=== PATIENT | male | born 1995 | race African-American/Black ===

== ENCOUNTER 2017-11-18 20:58 | Emergency (ER) | payer BC, SELFPAY ==
[2017-11-18] MEDS ORDERED: PANTOPRAZOLE 40 MG INJ ONE (22:00)
[2017-11-18] MEDS ORDERED: ONDANSETRON 4 MG/2 ML VIAL ONE (22:00)
[2017-11-18 22:09] LABS: Absolute Lymphocytes (CBC) 0.3 K/uL (0.7-4.9); Absolute Monocytes 0.4 K/uL (0.1-1.3); Absolute Neutrophil 8.4 K/uL (1.8-8.0); Basophils % 0.3 % (0-1.3); Eosinophils % 0.2 % (0-4.4); Hematocrit 48.6 % (39.6-49.0); Lymphocytes % 3.2 % (15.3-44.8); MCH 29.7 pg (27.0-35.0); MCV 86.2 fL (80-100); MPV 9.4 fL (7.6-11.3); Monocytes % 4.7 % (3.3-12.3); RBC Red Blood Cell Count 5.64 M/uL (4.33-5.43)
[2017-11-18 22:20] LABS: ALT/SGPT 28 U/L (12-78); AST/SGOT 24 U/L (15-37); Albumin 4.4 g/dL (3.4-5.0); Alkaline Phosphatase 82 U/L (45-117); Amylase Level 52 U/L (25-115); BUN Blood Urea Nitrogen 13 mg/dL (7-18); Bicarbonate 28 mmol/L (21-32); Bilirubin Direct 0.2 mg/dL (0-0.2); Bilirubin Total 0.6 mg/dL (0.2-1.0); Glucose Level 98 mg/dL (74-106); Lipase 90 U/L (73-393); Potassium 3.9 mmol/L (3.5-5.1); Protein, Total 8.5 g/dL (6.4-8.2); Sodium Level 140 mmol/L (136-145)
--- NOTE | 2017-11-18 22:21 | RAD REPORT ---
EXAM DESCRIPTION: Wendy Single View11/18/2017 9:48 pm CLINICAL HISTORY: Chest pain COMPARISON: none FINDINGS: The lungs appear clear of acute infiltrate. The heart is normal size IMPRESSION: No acute abnormalities displayed
[2017-11-18 22:34] LABS: Blood Morphology Comment NOT SEEN (NOT SEEN); Platelet Estimate ADEQ
[2017-11-18] MEDS ORDERED: NA CHLORIDE 0.9% 1,000 ML ONE (22:52)
[2017-11-18 22:58] LABS: Urine Blood NEGATIVE (NEG); Urine Glucose NEGATIVE (NEG); Urine Specific Gravity >1.030 (1.005-1.030)
[2017-11-18 22:59] LABS: Urine Protein 1+ (NEG)
--- NOTE | 2017-11-18 23:24 | ER ---
Nurse's Notes [facility] Department Name: Ashley Zazueta Age: 22 yrs Sex: Male : 1995 Arrival Date: 11/18/2017 Time: 21:02 Bed 13 Private MD: Diagnosis: Hematemesis Presentation: 11/18 21:13 Presenting complaint: Patient states: he started vomiting this morning then was sent bb home from work he then vomited until his stomach was empty and he was dry heaving then he vomited some blood. Transition of care: patient was not received from another setting of care. Onset of symptoms was November 18, 2017. Risk Assessment: Do you want to hurt yourself or someone else? Patient reports no desire to harm self or others. Initial Sepsis Screen: Does the patient meet any 2 criteria? No. Patient's initial sepsis screen is negative. Does the patient have a suspected source of infection? No. Patient's initial sepsis screen is negative. Care prior to arrival: None. 21:13 Method Of Arrival: Ambulatory bb 21:13 Acuity: CYNDEE 3 bb Historical: - Allergies: 21:14 No Known Allergies; bb - Home Meds: 21:14 None [Active]; bb - PMHx: 21:14 None; bb - PSHx: 21:14 None; bb - Immunization history:: Adult Immunizations not up to date. - Social history:: Smoking status: Patient/guardian denies using tobacco, Patient/guardian denies using alcohol, street drugs. - Ebola Screening: : No symptoms or risks identified at this time. Screenin:20 Abuse screen: Denies threats or abuse. Nutritional screening: No deficits noted. jd3 Tuberculosis screening: No symptoms or risk factors identified. Fall Risk Ambulatory Aid- None/Bed Rest/Nurse Assist (0 pts). Gait- Normal/Bed Rest/Wheelchair (0 pts) Mental Status- Oriented to own ability (0 pts). Total Pink Fall Scale indicates No Risk (0-24 pts). Assessment: 21:16 General: Appears in no apparent distress. uncomfortable, Behavior is calm, cooperative, jd3 appropriate for age. Pain: Complains of pain in epigastric area Pain currently is 1 out of 10 on a pain scale. Quality of pain is described as aching. Neuro: Level of Consciousness is awake, alert, obeys commands, Oriented to person, place, time, situation, Appropriate for age. Cardiovascular: Heart tones S1 S2 present Capillary refill < 3 seconds Patient's skin is warm and dry. Respiratory: Airway is patent Respiratory effort is even, unlabored, Respiratory pattern is regular, symmetrical, Breath sounds are clear bilaterally. GI: Abdomen is flat, non-distended, Bowel sounds present X 4 quads. Abd is soft and non tender X 4 quads. Reports nausea, normal bowel habits, vomiting blood Patient currently denies bloody stool, constipation, cramping, diarrhea. : No signs and/or symptoms were reported regarding the genitourinary system. EENT: No signs and/or symptoms were reported regarding the EENT system. Derm: No signs and/or symptoms reported regarding the dermatologic system. Musculoskeletal: Circulation, motion, and sensation intact. Range of motion: intact in all extremities. 22:38 Reassessment: Patient appears in no apparent distress at this time. Patient and/or jd3 family updated on plan of care and expected duration. Pain level reassessed. Patient is alert, oriented x 3, equal unlabored respirations, skin warm/dry/pink. 23:37 Reassessment: Patient appears in no apparent distress at this time. Patient and/or jd3 family updated on plan of care and expected duration. Pain level reassessed. Patient is alert, oriented x 3, equal unlabored respirations, skin warm/dry/pink. pt reported understanding of discharge instructions, even and steady gait upon discharge. Vital Signs: 21:14 BP 131 / 85; Pulse 112; Resp 18 S; Temp 99.9(O); Pulse Ox 100% on R/A; Weight 81.65 kg bb (R); Height 5 ft. 6 in. (167.64 cm) (R); Pain 2/10; 22:38 BP 124 / 81; Pulse 101; Resp 17 S; Pulse Ox 99% on R/A; Pain 1/10; jd3 23:37 BP 114 / 56; Pulse 98; Resp 16 S; Pulse Ox 99% on R/A; jd3 21:14 Body Mass Index 29.05 (81.65 kg, 167.64 cm) bb ED Course: 21:02 Patient arrived in ED. es 21:14 Triage completed. bb 21:14 Arm band placed on Patient placed in an exam room, on a stretcher, on pulse oximetry. bb Family accompanied patient. 21:16 Jignesh Hardy, RN is Primary Nurse. jd3 21:17 Jose Luis Kay PA is PHCP. cp 21:17 Santi Cisse MD is Attending Physician. cp 21:21 Patient has correct armband on for positive identification. Bed in low position. Call jd3 light in reach. Side rails up X 1. Adult w/ patient. 21:45 Missed attempt(s): 20 gauge in right antecubital area. Bleeding controlled, band aid jd3 applied, catheter tip intact. 21:48 XRAY Chest (1 view) In Process Unspecified. EDMS 21:50 Inserted saline lock: 20 gauge in left antecubital area, using aseptic technique. Blood jd3 collected. 23:22 Trent Rolon MD is Referral Physician. cp 23:36 No provider procedures requiring assistance completed. IV discontinued, intact, jd3 bleeding controlled, No redness/swelling at site. Pressure dressing applied. Administered Medications: 22:04 Drug: Zofran 4 mg Route: IVP; Site: left antecubital; jd3 22:47 Follow up: Response: No adverse reaction jd3 22:05 Drug: ProTONIX 40 mg Route: IVP; Site: left antecubital; jd3 22:47 Follow up: Response: No adverse reaction jd3 22:55 Drug: NS 0.9% 1000 ml Route: IV; Rate: 1 bolus; Site: left antecubital; jd3 23:37 Follow up: Response: No adverse reaction; IV Status: Completed infusion; IV Intake: jd3 1000ml Intake: 23:37 IV: 1000ml; Total: 1000ml. jd3 Outcome: 23:23 Discharge ordered by MD. cp 23:36 Discharged to home ambulatory, with family. jd3 23:36 Condition: stable 23:36 Discharge instructions given to patient, family, Instructed on discharge instructions, follow up and referral plans. medication usage, Demonstrated understanding of instructions, follow-up care, medications, Prescriptions given X 2. 23:38 Patient left the ED. jd3 Signatures: Dispatcher [employer] EDLashay Frey Brenda, RN RN bb Page, Corey, PA PA cp Jignesh Hardy RN RN jd3
--- NOTE | 2017-11-18 23:24 | EDPHYS ---
Physician Documentation [facility] Name: Ashley Zazueta Age: 22 yrs Sex: Male : 1995 Arrival Date: 11/18/2017 Time: 21:02 Bed 13 Private MD: ED Physician Santi Cisse HPI: 11/18 21:45 This 22 yrs old Black Male presents to ER via Ambulatory with complaints of Fever, cp VOMITING BLOOD. 21:46 The patient presents to the emergency department with vomiting, that is intermittent, cp described as bright red blood. Onset: The symptoms/episode began/occurred this morning. Possible causes: unknown. Associated signs and symptoms: Pertinent positives: abdominal pain, fever, Pertinent negatives: constipation, diarrhea. Severity of symptoms: in the emergency department the symptoms have improved mildly. Historical: - Allergies: 21:14 No Known Allergies; bb - Home Meds: 21:14 None [Active]; bb - PMHx: 21:14 None; bb - PSHx: 21:14 None; bb - Immunization history:: Adult Immunizations not up to date. - Social history:: Smoking status: Patient/guardian denies using tobacco, Patient/guardian denies using alcohol, street drugs. - Ebola Screening: : No symptoms or risks identified at this time. ROS: 21:47 Eyes: Negative for injury, pain, redness, and discharge. cp 21:47 Constitutional: Negative for body aches, chills, fever, poor PO intake. 21:47 ENT: Negative for drainage from ear(s), ear pain, sore throat, difficulty swallowing, difficulty handling secretions. 21:47 Cardiovascular: Negative for chest pain, edema, palpitations. 21:47 Respiratory: Negative for cough, shortness of breath, wheezing. 21:47 Abdomen/GI: Positive for abdominal pain, vomiting, hematemesis, of the epigastric area, Negative for diarrhea, constipation, black/tarry stool, rectal bleeding. 21:47 Back: Positive for pain at rest. 21:47 Skin: Negative for cellulitis, rash. 21:47 Neuro: Negative for altered mental status, headache, loss of consciousness, syncope, near syncope, weakness. 21:47 All other systems are negative. Exam: 21:55 Constitutional: The patient appears in no acute distress, alert, awake, comfortable, cp non-toxic, well developed, well nourished. 21:55 Head/Face: Normocephalic, atraumatic. cp 21:55 Eyes: Periorbital structures: appear normal, Conjunctiva: normal, no exudate, no injection, Sclera: no appreciated abnormality, Lids and lashes: appear normal, bilaterally. 21:55 ENT: External ear(s): are unremarkable, Nose: is normal, Mouth: Lips: moist, Oral mucosa: moist, Posterior pharynx: is normal, airway is patent, no erythema, no exudate. 21:55 Neck: ROM/movement: is normal, is supple, without pain, no range of motions limitations, no meningismus, no nuchal rigidity. 21:55 Chest/axilla: Inspection: normal, Palpation: is normal, no crepitus, no tenderness. 21:55 Cardiovascular: Rate: tachycardic, Rhythm: regular. 21:55 Respiratory: the patient does not display signs of respiratory distress, Respirations: normal, no use of accessory muscles, no retractions, no splinting, no tachypnea, labored breathing, is not present, Breath sounds: are clear throughout, no decreased breath sounds, no stridor, no wheezing. 21:55 Abdomen/GI: Inspection: abdomen appears normal, Bowel sounds: active, all quadrants, Palpation: soft, in all quadrants, mild abdominal tenderness, in the epigastric area, rebound tenderness, is not appreciated, voluntary guarding, is not appreciated, involuntary guarding, is not appreciated. 21:55 Back: pain, is absent, ROM is normal. 21:55 Skin: cellulitis, is not appreciated, no rash present. 21:55 Neuro: Orientation: to person, place \T\ time. Mentation: lucid, able to follow commands, Cerebellar function: is grossly normal, Motor: moves all fours, strength is normal, Sensation: no obvious gross deficits, Gait: is steady. Vital Signs: 21:14 BP 131 / 85; Pulse 112; Resp 18 S; Temp 99.9(O); Pulse Ox 100% on R/A; Weight 81.65 kg bb (R); Height 5 ft. 6 in. (167.64 cm) (R); Pain 2/10; 22:38 BP 124 / 81; Pulse 101; Resp 17 S; Pulse Ox 99% on R/A; Pain 1/10; jd3 23:37 BP 114 / 56; Pulse 98; Resp 16 S; Pulse Ox 99% on R/A; jd3 21:14 Body Mass Index 29.05 (81.65 kg, 167.64 cm) bb MDM: 21:18 Patient medically screened. cp 22:00 Differential diagnosis: gastritis, pancreatitis, viral gastroenteritis, cp gastroenteritis, Giselle Shad tear, gastric ulcer. 23:20 Data reviewed: vital signs, nurses notes, lab test result(s), radiologic studies, plain cp films. 23:20 Test interpretation: by ED physician or midlevel provider: plain radiologic studies. cp Counseling: I had a detailed discussion with the patient and/or guardian regarding: the historical points, exam findings, and any diagnostic results supporting the discharge/admit diagnosis, lab results, radiology results, to return to the emergency department if symptoms worsen or persist or if there are any questions or concerns that arise at home. 23:20 ED course: VSS. No vomiting observed in ED. Patient observed tolerating po fluids. Will cp discharge to home for continued monitoring. 11/18 21:32 Order name: Amylase, Serum; Complete Time: 22:22 11/18 21:32 Order name: Basic Metabolic Panel; Complete Time: 22:22 11/18 22:41 Interpretation: Reviewed. 11/18 21:32 Order name: CBC with Diff; Complete Time: 22:41 11/18 22:41 Interpretation: Normal except: RBC 5.64; ERIN% 91.6; LYM% 3.2; NEUT A 8.4; LYMA 0.3. 11/18 21:32 Order name: Creatinine for Radiology; Complete Time: 22:22 11/18 21:32 Order name: Hepatic Function; Complete Time: 22:22 11/18 22:23 Interpretation: Normal except: TP 8.5; GLOB 4.1. 11/18 21:32 Order name: Lipase; Complete Time: 22:22 11/18 21:32 Order name: XRAY Chest (1 view); Complete Time: 22:22 11/18 22:27 Order name: Manual Differential; Complete Time: 22:41 EDMS 11/18 22:41 Interpretation: Normal except: SEGS 92; LYM 3. 11/18 22:48 Order name: Urine Dipstick--Ancillary (enter results) ms 11/18 22:48 Order name: Urine Dipstick-Ancillary; Complete Time: 23:18 EDMS 11/18 23:18 Interpretation: Normal except: USPGR >1.030; UKET 3+; UPROT 1+. cp 11/18 21:32 Order name: IV Saline Lock; Complete Time: 21:54 cp 11/18 21:32 Order name: Labs collected and sent; Complete Time: 21:54 cp 11/18 21:32 Order name: Urine Dipstick-Ancillary (obtain specimen); Complete Time: 22:48 cp 11/18 22:42 Order name: PO challenge; Complete Time: 22:55 cp Administered Medications: 22:04 Drug: Zofran 4 mg Route: IVP; Site: left antecubital; jd3 22:47 Follow up: Response: No adverse reaction jd3 22:05 Drug: ProTONIX 40 mg Route: IVP; Site: left antecubital; jd3 22:47 Follow up: Response: No adverse reaction jd3 22:55 Drug: NS 0.9% 1000 ml Route: IV; Rate: 1 bolus; Site: left antecubital; jd3 23:37 Follow up: Response: No adverse reaction; IV Status: Completed infusion; IV Intake: jd3 1000ml Disposition: 11/19 06:23 Co-signature as Attending Physician, Santi Cisse MD. Disposition: 11/18/17 23:23 Discharged to Home. Impression: Hematemesis. - Condition is Stable. - Discharge Instructions: Hematemesis, Giselle-Josue Syndrome. - Prescriptions for Protonix 40 mg Oral Tablet - take 1 tablet by ORAL route once daily; 30 tablet. Zofran 4 mg Oral Tablet - take 1 tablet by ORAL route every 12 hours As needed; 20 tablet. - Medication Reconciliation Form, Thank You Letter, Antibiotic Education, Prescription Opioid Use, Work release form, Family Work Release form. - Follow up: Trent Rolon MD; When: 2 - 3 days; Reason: Recheck today's complaints. - Problem is new. - Symptoms have improved. Signatures: Dispatcher [employer] EDAnila Gonzalez RN RN bb Page, Corey, PA PA cp Starr, Gregory, MD MD Hardy, Jignesh, RN RN jd3 Corrections: (The following items were deleted from the chart) 11/18 23:38 23:23 11/18/2017 23:23 Discharged to Home. Impression: Hematemesis. Condition is jd3 Stable. Forms are Medication Reconciliation Form, Thank You Letter, Antibiotic Education, Prescription Opioid Use. Follow up: Trent Rolon; When: 2 - 3 days; Reason: Recheck today's complaints. Problem is new. Symptoms have improved. cp
== END 2017-11-18 23:38 | disposition home or self-care (01) ==
LOC: ER 20:58
DX: K92.0 Hematemesis (principal)
CPT/HCPCS: 36415; 71045; 80048; 80076; 81003; 82150; 83690; 85025; 96361; 96374; 96375; 99284; C9113; J2405; J7030

== ENCOUNTER 2020-01-05 18:13 | Emergency (ER) | payer BC, SELFPAY ==
--- OUTSIDE RECORDS SUMMARY | 2020-01-05 18:15 | XMS REPORT | Continuity of Care Document ---
:1995 Author Organization [facility] t Address [address] [place] [address] Dr. Edmonds [address] [place] [id number] Care Team Providers Name Role Phone Unavailable Unavailable Unavailable Problems This patient has no known problems. Allergies, Adverse Reactions, Alerts This patient has no known allergies or adverse reactions. Medications This patient has no known medications. Procedures This patient has no known procedures. Results This patient has no known results.
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
[2020-01-05] MEDS ORDERED: CYCLOBENZAPRINE 10 MG TAB ONE (21:09)
[2020-01-05] MEDS ORDERED: IBUPROFEN 400 MG TAB ONE (21:09)
[2020-01-07 13:48] VITALS: BP 141/83; TEMP 98.7; O2SAT 98
== END 2020-01-05 21:22 | disposition home or self-care (01) ==
LOC: ER 18:13
DX: S16.1XXA Strain of muscle, fascia and tendon at neck level, initial encounter (principal); M25.521 Pain in right elbow; R20.2 Paresthesia of skin; V49.59XA Passenger injured in collision with other motor vehicles in traffic accident, initial encounter; Y92.481 Parking lot as the place of occurrence of the external cause
CPT/HCPCS: 70450; 72125; 72131; 99284